=== PATIENT | male | born 1995 | race Two or more races ===

== ENCOUNTER 2020-07-18 23:13 | Emergency (ER) | payer OTHER ==
[~2020-07-18] VITALS: Ht 175.3 cm; Wt 77.1 kg
[2020-07-19] MEDS ORDERED: ULTRAM50 MG PO (13:33)
== END 2020-07-19 13:48 | disposition home or self-care (01) ==
LOC: ER 23:13
DX: N20.0 Calculus of kidney (principal); R10.31 Right lower quadrant pain